=== PATIENT | male | born 1970 | race Caucasian/White ===

== ENCOUNTER 2022-02-23 06:11 | Emergency (ER) | payer BC, SELFPAY ==
--- NOTE | ~2022-02-23 | XR_ITS ---
EXAMINATION: XR chest 2V DATE: 02/23/2022 07:35 INDICATION: Syncope, dizziness, nausea, vomiting and diarrhea. TECHNIQUE: PA and lateral views of the chest were obtained. COMPARISON: Chest radiograph and CT dated 04/28/2015 FINDINGS: Unchanged linear discoid atelectasis/scarring in the anterior left upper lobe on the lateral projecti on. No other airspace opacities, pulmonary edema, pleural effusion or pneumothorax. The cardiomediast inal silhouette is normal. Routine bilateral paired rib-bearing thoracic segments with mild thoracic spondylosis. IMPRESSION: 1. No acute cardiopulmonary disease. Reviewed, dictated and finalized at location A.
[2022-02-23 06:09] VITALS: BP 114/74; PULSE 58; RESP 19; TEMP 36.7; O2SAT 97
--- NOTE | 2022-02-23 06:18 | ECG_ITS ---
Measurements Intervals [place] Rate: 50 P: 29 AR: 206 QRS: -36 QRSD: 113 T: 116 QT: 459 QTc: 422 Interpretive Statements SINUS BRADYCARDIA LEFT ANTERIOR SUPERIOR HEMIBLOCK MODERATE T-WAVE ABNORMALITY, CONSIDER LATERAL ISCHEMIA [-0.1+ mV T WAVE IN I/aVL/V5/V6] NO PREVIOUS ECG AVAILABLE FOR COMPARISON Electronically Signed On 02-23-2022 13:59:02 CDT by Tha Lynne M.D.
--- NOTE | 2022-02-23 06:25 | ED.SYNCOPE ---
HPI - Syncope General Chief Complaint: Dizziness <Scooby Kwon DO - Last Filed: 02/24/22 04:08> Stated Complaint: Dizzy with syncopal <Scooby Kwon DO - Last Filed: 02/24/22 04:08> Time Seen by Provider: 02/23/22 06:18 <Scooby Kwon DO - Last Filed: 02/24/22 04:08> History of Present Illness HPI narrative: 51-year-old male brought in by EMS after syncopal episode. He states he woke up this morning he was having nausea and had some vomiting. He went to the bathroom was having some diarrhea. As he was sitting on the toilet with the diarrhea he was nauseated again and then had a syncopal episode. He states he woke up on the floor. Denies any injuries from falling off the toilet. He states he feels nauseated at this time. Denies any chest pain or shortness of breath. He states he had 1 prior episode which occurred when he cut himself when he saw his blood he passed out. Denies any chronic medical issues other than some elevated blood sugars but he states he is lost weight and seem to have that under control. <Socoby Kwon DO - Last Filed: 02/24/22 04:08> Related Data Home Medications: Home Medications Medication Instructions Recorded Confirmed No Home Medications 02/23/22 02/23/22 <Scooby Kwon DO - Last Filed: 02/24/22 04:08> Allergies/Adverse Reactions: Allergies Allergy/AdvReac Type Severity Reaction Status Date / Time No Known Allergies Allergy Unknown Verified 02/23/22 06:16 <Scooby Kwon DO - Last Filed: 02/24/22 04:08> Review of Systems Review of Systems: CONSTITUTIONAL: Denies fever, chills, or sweats. EYES: Denies visual changes, redness, or discharge. ENT: Denies rhinorrhea, congestion, sore throat, or otalgia. CARDIOVASCULAR: Denies chest pain, palpitations, or edema. RESPIRATORY: Denies cough or dyspnea. GASTROINTESTINAL: Cramping abdominal pain with associated nausea, vomiting, and diarrhea GENITOURINARY: Denies dysuria or hematuria. SKIN: Denies rash or itching. MUSCULOSKELETAL: Denies back pain, joint pain, or myalgia. NEUROLOGIC: Denies headache, numbness, or weakness. PSYCHIATRIC: Denies anxiety or depression. <Scooby Kwon DO - Last Filed: 02/24/22 04:08> PMFSH Past Medical History Medical History: Medical History No pertinent past medical history <Scooby Kwon DO - Last Filed: 02/24/22 04:08> Surgical History Surgical History: Surgical History No pertinent past surgical history <Scooby Kwon DO - Last Filed: 02/24/22 04:08> Family History Family History: Family History Father Family history of diabetes mellitus in first degree relative Family history of type 1 diabetes mellitus Sibling Family history of malignant neoplasm of breast in first degree relative Mother Patient's mother is in good health <Scooby Kwon DO - Last Filed: 02/24/22 04:08> Social History Social History: Social History Smoking status: Heavy tobacco smoker Alcohol intake: current <Scooby Kwon DO - Last Filed: 02/24/22 04:08> Exam Narrative: APPEARANCE: Well appearing, no pain or distress, well-nourished. Head Normocephalic and atraumatic. EYES: PERRLA/EOMI, conjunctivae clear. NOSE: Normal with no drainage EARS:TMS clear with [place], with good light reflex. THROAT: Pharynx clear, no exudate. NECK: Supple. No adenopathy, no masses. RESPIRATORY: Airway patent, respirations nonlabored. Clear to auscultation bilaterally, no rales, rhonchi, wheezing. CARDIOVASCULAR: Regular rate and rhythm without murmurs, rubs, or gallops. Heart rate in the 50s ABDOMINAL: Soft, nontender, nondistended, no hepatosplenomegaly Musculoskeletal: Moves all extremities. Strength/ROM intact, No edema, No
[2022-02-23] MEDS: ONDANSETRON INJ 4 MG/2 ML VIAL IV PUSH (06:41)
[2022-02-23] MEDS: SODIUM CHLORIDE 0.9% IV 1,000 ML 999 ML IV CONT (06:41)
[2022-02-23 06:42] VITALS: BP 97/67; PULSE 59; RESP 15; O2SAT 97
[2022-02-23 06:52] LABS: Basophils Absolute Auto 0.1 K/mm3 (0.0-0.1); Basophils Percent Auto 0.7 % (0.2-1.2); Eosinophils Absolute Auto 0.2 K/mm3 (0-0.3); Eosinophils Percent Auto 1.7 % (0-4.4); Hematocrit 45.8 % (42.0-52.0); Hemoglobin 15.6 g/dL (14.0-18.0); Immature Granulocyte Absolute 0.11 K/mm3 (0.00-0.031); Immature Granulocyte Percent A 0.8 % (0-0.5); Lymphocytes Percent Auto 39.9 % (18.3-44.2); Mean Corpuscular HGB Conc 34.1 g/dl (32-36); Mean Corpuscular Hemoglobin 30.1 pg (26-34); Mean Corpuscular Volume 88.4 fl (80-100); Mean Platelet Volume 10.3 fl (7.4-10.4); Monocytes Absolute Auto 1.1 K/mm3 (0.1-0.6); Monocytes Percent Auto 7.5 % (2.6-8.5); Neutrophils Absolute Auto 6.9 K/mm3 (1.3-6.7); Neutrophils Percent Auto 49.4 % (45.5-73.1); Platelet Count Result 243 k/mm3 (150-375); Red Blood Count 5.18 M/mm3 (4.6-6.20); Red Cell Distribution Width 12.6 % (11.5-14.5)
[2022-02-23 07:04] LABS: Alanine Aminotransferase 27 U/L (6-50); Albumin Level 4.2 g/dL (3.5-5.1); Alkaline Phosphatase 55 U/L (38-126); Anion Gap 11 mmol/L (8-16); Aspartate Amino Transferase 20 U/L (17-59); Bilirubin,Total 0.5 mg/dL (0.2-1.3); Blood Urea Nitrogen 16 mg/dL (9-20); Calcium 9.8 mg/dL (8.4-10.2); Carbon Dioxide 24 mmol/L (22-30); Chloride 102 mmol/L (98-107); Estimated CRCL calculation 77 ml/min; Estimated Glomerular Filt Rate > 60; Glucose 149 mg/dL (65-110); Potassium 3.6 mmol/L (3.4-5.0); Sodium 137 mmol/L (137-145)
[2022-02-23 07:12] VITALS: BP 114/75; PULSE 57; RESP 16; O2SAT 99
[2022-02-23 07:14] LABS: Atypical Lymphocytes Present; Platelet Estimate Adequate (Adequate)
[2022-02-23 07:36] LABS: Troponin I 0.025 ng/mL (0.000-0.034)
[2022-02-23 07:38] LABS: Lipase 125 U/L (23-300)
--- NOTE | 2022-02-23 07:48 | PC.NURSE ---
Pt not able to urinate at this time.
[2022-02-23 08:43] LABS: Appearance Urine Clear (Clear); Bilirubin Urine Negative (Negative); Blood Urine Negative (Negative); Color Urine Yellow (Yellow); Glucose Urine UA Trace mg/dL (Negative); Ketones Urine Negative (Negative); Leukocyte Esterase Ur Negative LEU/UL (Negative); Nitrate Urine Negative (Negative); Protein Urine 1+ mg/dL (Negative); Specific Grav Ur 1.025 (1.001-1.035); Urobilinogen Urine 0.2 mg/dL (<2.0)
[2022-02-23 08:49] LABS: Hyaline Casts Urine 50+ /lpf; Mucus Urine Rare /lpf; RBC Urine 0-2 /hpf (0-2); WBC Urine 0-3 /hpf
[2022-02-23 08:54] LABS: Add Urine Microscopic? YES
[2022-02-23 09:49] LABS: Troponin I 0.027 ng/mL (0.000-0.034)
[2022-02-23 12:02] LABS: Troponin I 0.018 ng/mL (0.000-0.034)
== END 2022-02-23 12:59 | disposition home or self-care (01) ==
PROVIDERS: Emergency Medicine; Emergency Provider Emergency Medicine
DX: R55 Syncope and collapse (principal); R00.1 Bradycardia, unspecified
CPT/HCPCS: 36415; 71046; 80053; 81001; 83690; 84484; 85025; 93005; 96361; 96374; 99284; J2405; J7030

== ENCOUNTER 2023-06-17 13:37 | Outpatient (CLI) | payer BC, SELFPAY ==
[2023-06-17 14:14] LABS: Basophils Percent Auto 0.4 % (0.2-1.2); Eosinophils Absolute Auto 0.1 K/mm3 (0-0.3); Eosinophils Percent Auto 0.6 % (0-4.4); Hemoglobin 16.5 g/dL (14.0-18.0); Immature Granulocyte Absolute 0.06 K/mm3 (0.00-0.031); Immature Granulocyte Percent A 0.6 % (0-0.5); Lymphocytes Absolute Auto 2.34 K/mm3 (0.9-3.2); Lymphocytes Percent Auto 23.6 % (18.3-44.2); Mean Corpuscular HGB Conc 34.4 g/dl (32-36); Mean Corpuscular Hemoglobin 30.3 pg (26-34); Mean Corpuscular Volume 88.1 fl (80-100); Mean Platelet Volume 10.7 fl (7.4-10.4); Monocytes Absolute Auto 0.6 K/mm3 (0.1-0.6); Monocytes Percent Auto 6.4 % (2.6-8.5); Neutrophils Absolute Auto 6.8 K/mm3 (1.3-6.7); Neutrophils Percent Auto 68.4 % (45.5-73.1); Platelet Count Result 229 k/mm3 (150-375); Red Blood Count 5.45 M/mm3 (4.6-6.20); Red Cell Distribution Width 12.3 % (11.5-14.5); White Blood Count 9.9 K/mm3 (4.5-10.0)
[2023-06-17 15:06] LABS: Alanine Aminotransferase 37 U/L (6-50); Albumin Level 4.6 g/dL (3.5-5.1); Alkaline Phosphatase 65 U/L (38-126); Anion Gap 8 mmol/L (8-16); Aspartate Amino Transferase 22 U/L (17-59); Bilirubin,Total 0.6 mg/dL (0.2-1.3); Blood Urea Nitrogen 14 mg/dL (9-20); Calcium 9.6 mg/dL (8.4-10.2); Carbon Dioxide 27 mmol/L (22-30); Chloride 102 mmol/L (98-107); Cholesterol 265 mg/dL (0-200); Estimated Glomerular Filt Rate > 60; Glucose 225 mg/dL (65-110); HDL Direct 32 mg/dL; Sodium 137 mmol/L (137-145); Triglycerides 287 mg/dL (<150)
[2023-06-17 15:17] LABS: LDL Cholesterol Direct 163 mg/dL
== END 2023-06-17 13:38 | disposition home or self-care (01) ==
PROVIDERS: PCP Family Medicine; Visit Provider Family Medicine
DX: I10 Essential (primary) hypertension (principal); E78.2 Mixed hyperlipidemia; E03.9 Hypothyroidism, unspecified
CPT/HCPCS: 36415; 80053; 80061; 84443; 85025

== ENCOUNTER 2023-10-26 11:17 | Outpatient (CLI) | payer BC, SELFPAY ==
[2023-10-26 12:19] LABS: Hemoglobin A1C 7.6 % (<5.7)
== END 2023-10-26 11:18 | disposition home or self-care (01) ==
LOC: ANHLAB 11:18
PROVIDERS: PCP Family Medicine; Referring Provider Physician Assistant; Visit Provider Family Medicine
DX: M25.561 Pain in right knee (principal); E11.9 Type 2 diabetes mellitus without complications
CPT/HCPCS: 36415; 73564; 83036

== ENCOUNTER 2024-02-05 11:33 | Outpatient (CLI) | payer BC, SELFPAY ==
--- NOTE | ~2024-02-05 | MR_ITS ---
MRI of the right knee Clinical history: Medial pain Technique: Coronal proton density and proton density-weighted images, sagittal proton-density and T2 fat-sat images, and axial proton-density fat-saturated images were acquired. Findings: Anterior and posterior cruciate ligaments are intact. Medial collateral ligament and the la teral collateral ligament complex are intact. Popliteus tendon is intact. Medial and lateral menisci are intact, without evidence of tear. Articular cartilage is well preserved throughout the knee. Bone marrow signals are unremarkable. Extensor mechanism is intact. No significant joint effusion. Tiny Jackson's cyst. Impression: Tiny Jackson's cyst, otherwise essentially unremarkable exam. Reviewed, dictated and finalized at location M. Impression: Tiny Jackson's cyst, otherwise essentially unremarkable exam.
== END 2024-02-05 11:34 ==
PROVIDERS: PCP Nurse Practitioner Family; Visit Provider Nurse Practitioner Family
DX: M25.561 Pain in right knee (principal)
CPT/HCPCS: 73721

== ENCOUNTER 2024-02-11 10:01 | Outpatient (CLI) | payer BC, SELFPAY ==
[2024-02-11 11:07] LABS: Alanine Aminotransferase 64 U/L (6-50); Albumin Level 4.8 g/dL (3.5-5.1); Alkaline Phosphatase 62 U/L (38-126); Anion Gap 9 mmol/L (4-12); Aspartate Amino Transferase 32 U/L (17-59); Blood Urea Nitrogen 15 mg/dL (9-20); Calcium 9.2 mg/dL (8.4-10.2); Carbon Dioxide 25 mmol/L (22-30); Chloride 102 mmol/L (98-107); Cholesterol 320 mg/dL (0-200); Estimated Glomerular Filt Rate > 60; Glucose 261 mg/dL (65-110); HDL Direct 37 mg/dL; Potassium 4.1 mmol/L (3.4-5.0); Sodium 136 mmol/L (137-145)
[2024-02-11 11:08] LABS: LDL Cholesterol Direct 147 mg/dL
[2024-02-11 11:11] LABS: Hemoglobin A1C 8.7 % (<5.7); Triglycerides 587 mg/dL (<150)
== END 2024-02-11 10:02 | disposition home or self-care (01) ==
PROVIDERS: PCP Nurse Practitioner Family; Visit Provider Physician Assistant
DX: E78.5 Hyperlipidemia, unspecified (principal); E11.9 Type 2 diabetes mellitus without complications
CPT/HCPCS: 36415; 80053; 80061; 83036

== ENCOUNTER 2024-02-14 12:48 | Outpatient (CLI) | payer BC, SELFPAY ==
--- NOTE | ~2024-02-14 | US_ITS ---
BILATERAL LOWER EXTREMITY VENOUS ULTRASOUND Ordering provider: ALEX Sanchez History: . Z86.718 - Personal history of other venous thrombosis and... . Comparison: None. FINDINGS: RIGHT LOWER EXTREMITY VEINS: --COMMON FEMORAL: Patent and free of thrombus. Normal compressibility, phasic flow and augmentation. --PROXIMAL SUPERFICIAL FEMORAL: Patent and free of thrombus. Normal compressibility, phasic flow and augmentation. --DISTAL SUPERFICIAL FEMORAL: Patent and free of thrombus. Normal compressibility, phasic flow and au gmentation. --POPLITEAL: Patent and free of thrombus. Normal compressibility, phasic flow and augmentation. --POSTERIOR TIBIAL: Patent and free of thrombus. Normal compressibility, phasic flow and augmentation . LEFT LOWER EXTREMITY VEINS: --COMMON FEMORAL: Patent and free of thrombus. Normal compressibility, phasic flow and augmentation. --PROXIMAL SUPERFICIAL FEMORAL: Patent and free of thrombus. Normal compressibility, phasic flow and augmentation. --DISTAL SUPERFICIAL FEMORAL: Patent and free of thrombus. Normal compressibility, phasic flow and au gmentation. --POPLITEAL: Patent and free of thrombus. Normal compressibility, phasic flow and augmentation. --POSTERIOR TIBIAL: Patent and free of thrombus. Normal compressibility, phasic flow and augmentation . IMPRESSION: Negative bilateral lower extremity venous US. No deep vein thrombosis. Reviewed, dictated and finalized at location A.
== END 2024-02-14 12:49 ==
LOC: GOSHIMG 12:49
PROVIDERS: PCP Nurse Practitioner Family; Visit Provider Nurse Practitioner Family
DX: Z86.718 Personal history of other venous thrombosis and embolism (principal)
CPT/HCPCS: 93970

== ENCOUNTER 2024-05-02 13:55 | Outpatient (CLI) | payer BC, SELFPAY ==
[2024-05-03 13:32] LABS: Homocysteine 11.5 umol/L (<11.4)
[2024-05-03 20:29] LABS: Lupus dRVVT Screen 41 sec (< OR = 45); PTT-LA Screen 31 sec (< OR = 40)
== END 2024-05-02 13:56 | disposition home or self-care (01) ==
LOC: ANHLAB 13:58
PROVIDERS: PCP Family Medicine; Visit Provider Internal Medicine Hematology & Oncology
DX: D68.69 Other thrombophilia (principal)
CPT/HCPCS: 36415; 83090; 85303; 85306; 85613; 85730; 86146

== ENCOUNTER 2024-06-13 11:30 | Outpatient (CLI) | payer BC, SELFPAY ==
--- NOTE | 2024-06-13 11:30 | ECG_ITS ---
Test Date: 2024-06-13 11:57:34 Measurements Intervals [facility] Rate: 75 P: 30 RI: 184 QRS: -44 QRSD: 106 T: 49 QT: 382 QTc: 427 Interpretive Statements SINUS RHYTHM MARKED LEFT AXIS DEVIATION [QRS AXIS < -30] WARNING: DATA QUALITY MAY AFFECT INTERPRETATION No previous ECG available for comparison Electronically Signed On 06-13-2024 15:29:58 [employer]PERATOR by Julisa Stephen M.D.
== END 2024-06-13 11:31 | disposition home or self-care (01) ==
LOC: ANHSURGERY 11:38
PROVIDERS: PCP Student in an Organized Health Care Education/Training Program; Visit Provider Orthopaedic Surgery
DX: Z01.810 Encounter for preprocedural cardiovascular examination (principal); I44.4 Left anterior fascicular block; E11.9 Type 2 diabetes mellitus without complications
CPT/HCPCS: 36415; 80053; 83036; 93005

== ENCOUNTER 2024-06-13 11:40 | Outpatient (CLI) | payer BC, SELFPAY ==
[2024-06-13 12:22] LABS: Hemoglobin A1C 7.1 % (<5.7)
[2024-06-13 12:25] LABS: Alanine Aminotransferase 39 U/L (6-50); Albumin Level 4.5 g/dL (3.5-5.1); Alkaline Phosphatase 65 U/L (38-126); Anion Gap 6 mmol/L (4-12); Aspartate Amino Transferase 25 U/L (17-59); Bilirubin,Total 0.5 mg/dL (0.2-1.3); Blood Urea Nitrogen 17 mg/dL (9-20); Calcium 9.6 mg/dL (8.4-10.2); Carbon Dioxide 29 mmol/L (22-30); Chloride 102 mmol/L (98-107); Estimated Glomerular Filt Rate > 60; Glucose 202 mg/dL (65-110); Potassium 4.6 mmol/L (3.4-5.0); Sodium 137 mmol/L (137-145)
== END 2024-06-13 11:41 | disposition home or self-care (01) ==
LOC: ANHLAB 11:41
PROVIDERS: PCP Student in an Organized Health Care Education/Training Program; Visit Provider Student in an Organized Health Care Education/Training Program
DX: E11.9 Type 2 diabetes mellitus without complications (principal)
CPT/HCPCS: 36415; 80053; 83036

== ENCOUNTER 2024-06-15 00:12 | Day surgery (SDC) | payer BC, SELFPAY ==
[2024-06-07 11:17] VITALS: BMI 34.0
--- NOTE | 2024-06-07 11:24 | PC.NURSE ---
Report to the Outpatient Waiting Room, entrance under the green pavilion located off [facility], at time _1100_ on date _[phone]_. Planned Procedure Time: _1pm_.? Time changes happen often and if your time is changed the preop area will call you the afternoon before. - You and your visitor will be asked to self-screen and do not enter if you have any COVID symptoms. Please call surgeon if you need to reschedule. - A mask is optional within the hospital at this time. Patients may have clear liquids (water, carbonated beverages, clear teas, apple juice) until 3 hours prior to surgery with a maximum of 20 ounces. - No food from midnight until time of surgery and no smoking. This includes no chewing gum, candy or mints. Take only the following medications with a SIP of water on the morning of surgery: ____None____ DO NOT STOP ANY OF YOUR OTHER PRESCRIPTION MEDICATIONS PRIOR TO SURGERY EXCEPT THE FOLLOWING Medications to discontinue per physician ___Patient is not starting Celebrex until after surgery. Patient is stopping Aspirin today per MD instructions. Take no more Naproxen until after surgery. Tylenol OK. Date to take last dose Please no make-up, nail kinyarwanda, hairspray, perfume, deodorant, or body powder the day of surgery.? No jewelry (including any body piercings) or valuables the day of surgery, leave them at home.? Please take a shower or bath the night before, or the morning of, surgery with an antibacterial soap.? Wear comfortable, loose fitting clothing.? - Jewelry must be removed prior to entering the operating room.? Rings and piercings that are not removed may be cut off. - The hospital will not accept responsibility for valuables.? - Please leave all valuables, including medications, at home the day of surgery. If you are going home after surgery, a licensed commercial driver's license driver must drive you home.? - NO public transportation without another adult if you receive anesthesia. - We recommend that an adult stay with you for 24 hours following discharge. - We also recommend that you do not drive, make important decision, drink alcoholic beverages, or take any drugs that were not prescribed by your health care provider for at least 24 hours after your discharge time. Follow any additional instructions given to you from your surgeon. Telephone instructions given to _Tim_and asked if any additional questions and then verbalized understanding. Patient advised to call surgeon office or pre surgery nurse liaison [phone] if any additional questions.
--- NOTE | 2024-06-13 15:09 | P.HP_ITS ---
H&P: HPI History of Present Illness Date/Time: 06/13/24 15:09 Chief Complaint: right knee mass Narrative: 53-year-old man with visible and palpable mass of the right knee. Exquisitely tender to palpation. Problems with motion and activity. Presents for operative removal. Review of Systems Constitutional: Constitutional: Denies fever(s) Eyes: Eyes: Denies blurry vision ENT: Reports Normal hearing present Cardiovascular: Cardiovascular: Denies chest pain and Denies dyspnea Respiratory: Respiratory: Denies dyspnea and Denies wheezing Gastrointestinal: Gastrointestinal: Denies abdominal pain Genitourinary: Genitourinary: Denies urinary urgency Musculoskeletal: Musculoskeletal: Reports as per HPI and Denies numbness Integumentary/Breasts: Skin/Breast: Denies changing lesions and Denies sores Neurologic: Reports Normal hearing present, Denies behavioral changes, Denies confusion, Denies numbness and Denies convulsions Psychiatric: Psychiatric: Denies behavioral changes, Denies confusion and Denies hallucinations Endocrine: Endocrine: Denies heat intolerance Hematologic/Lymphatic: Hematologic/Lymphatic: Denies easy bleeding Allergic/Immunologic: Allergic/Immunologic: Denies wheezing PMFSH Past Medical History Medical History Chronic insomnia Colon cancer screening Dizziness Elevated fasting glucose Elevated liver enzymes 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 Erectile dysfunction Essential hypertension Generalized anxiety disorder GERD (gastroesophageal reflux disease) Heart palpitations History of blood clots Impaired glucose tolerance Mass of knee Mass of right knee MTHFR mutation Pulmonary emboli Right knee pain Sleep apnea in adult Tobacco use Family History Family History Father Family history of diabetes mellitus in first degree relative Family history of type 1 diabetes mellitus Sibling Family history of malignant neoplasm of breast in first degree relative Mother Patient's mother is in good health Social History Social History Social History: Smoking packs per day: 1 Smoking cigarettes per day: 20.0 Years smoked: 30 Smoking pack-years: 30.00 Smoking status: Former smoker Tobacco type: cigarettes Smoking end date: 12/06/23 Alcohol intake: current Alcohol use details: Rarely Substance use: never Substance use type: does not use Lack of Transportation: No Lack of Food: Never True Current Housing: I Have Housing Concerned About Future Housing: No Difficulty Paying Gas/Electric Bills: No Difficulty Paying for Meds: No Currently Unemployed: No Education: Associate Degree Difficulty w/ Childcare or Family Care: No Living arrangements: with family Occupation/Education: occupation 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/education 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 Gender identity (if verbalized by the patient): Male Sexual Orientation (if Verbalized by the Patient): Straight or Heterosexual Spiritual care concerns: No Meds Home Medications and Allergies Home Medications Medication Instructions Recorded Confirmed Type acetaminophen 325 mg capsule 325 mg PO Q6H PRN Pain 05/04/23 06/07/24 History (Tylenol) aspirin 81 mg tablet,delayed 81 mg PO DAILY 05/04/23 06/07/24 History release (Adult Aspirin Regimen) famotidine 10 mg tablet 10 mg PO DAILY PRN reflux 05/04/23 06/07/24 History buspirone 5 mg tablet 5 mg PO TID PRN anxiety' 06/25/23 06/07/24 History blood sugar diagnostic (Contour #100 ea 10/29/23 06/07/24 Rx Next Test Strips) blood-glucose meter (Contour Next #1 ea 10/29/23 06/07/24 Rx Gen Meter kit) lancets 28 gauge (Comfort EZ #100 ea 10/29/23 06/07/24 Rx Lancets) metformin 500 mg tablet See Rx Instructions .Route 03/03/24 06/07/24 Rx .COMPLEX #60 tabs celecoxib 100 mg capsule (Celebrex) 100 mg PO BID #60 caps 03/31/24 06/07/24 Rx rosuvastatin 5 mg tablet 5 mg PO DAILY #30 tabs 03/31/24 06/07/24 Rx semaglutide 0.25 mg or 0.5 mg (2 See Rx Instructions .Route 06/01/24 06/07/24 Rx mg/3 mL) subcutaneous pen injector .COMPLEX #3 mL (Ozempic) loratadine 10 mg tablet (Claritin) 10 mg PO DAILY 06/07/24 06/07/24 History naproxen sodium 220 mg tablet 220 mg PO BID PRN Pain 06/07/24 06/07/24 History Allergies Allergy/AdvReac Type Severity Reaction Status Date / Time rivaroxaban [From Xarelto] Allergy Severe Swelling Verified 06/07/24 11:14 of Lip/Tongue/Throat Exam Const: General: No confusion Orientation/consciousness: patient oriented x3 and No confusion HENMT: Head: normal to inspection, normocephalic and atraumatic Eyes: Conjunctivae: conjunctivae normal Sclera: sclerae normal Neck: Neck: supple and nontender Chest: Chest palpation & inspection: normal inspection of the chest Resp: Effort & Inspection: normal respiratory effort and no audible wheezes Cardio: Rate: regular rate Rhythm: regular rhythm GI: GI Palp: No abdominal tenderness and Yes Soft to palpation : General: Yes deferred Skin: General skin exam: no rashes or lesions noted Neuro: General: patient oriented x3 and No confusion Extrem: General: capillary refill normal Right upper extremity: normal to inspection Left upper extremity: normal to inspection Right lower extremity: hip/thigh Details: normal to inspection and normal ROM; no tenderness, knee Details: normal to inspection, abnormal to inspection ( Visible mass medial knee. 2 cm, nonmobile and nonpulsatile. Tender to palpation.), tenderness Location: of the medial joint line, swelling Location: of the pre-patellar area, abnormal ROM Details: pain with active ROM during Details: in extension and in flexion and with range as follows ( -5 degrees - flexion 120?) and Migel's Test Details: positive medially, ankle ( able to actively flex and extend ankle) Details: no tenderness and foot Details: normal capillary refill, toes with normal ROM, vascular exam Details: dorsalis pedis pulse present and normal capillary refill and motor-sensory exam Details: light- touch normal Location: in all toes; no tenderness Left lower extremity: normal to inspection, hip/thigh Details: no tenderness and no swelling, lower leg, ankle (no calf tenderness) Details: normal ROM; no tenderness and foot Details: normal capillary refill, vascular exam Details: dorsalis pedis pulse present and normal capillary refill and motor-sensory exam light-touch normal in all toes Psych: Affect: normal affect Assessment and Plan Assessment and plan (1) Mass of right knee: Code(s): R22.41 - Localized swelling, mass and lump, right lower limb Status: Acute Assessment and Plan: 53 year old male presents for right knee mass. MRI reveals an 8 x 6 mm subcutaneous mass superficial to the medial retinaculum. Condition, nature, etiology and course of natural history discussed. Conservative and operative treatment options reviewed as well as the risks and benefits of both. Patient desires surgical excision. Previously requested bilateral lower extremity Dopplers as patient does have a history of a pulmonary embolism with a clotting disorder at baseline. Bilateral lower extremity Dopplers reveal no evidence of deep vein thrombosis. Patient would like to proceed with surgical intervention for excision of mass. Discussed possible risks of postoperative poor healing with current elevation in blood glucose levels. Patient verbalized understanding. Risks of surgery including but not limited to neurovascular damage, wound complications, blood clot, pulmonary embolus, stroke, myocardial infarction, anesthetic risks up to and including were reviewed. Continued pain and possible dysfunction were explained. No guarantees were offered. The patient understands and wishes to proceed. Plan: Excision of Mass RIGHT Knee
--- NOTE | 2024-06-14 16:11 | P.PNAN_ITS ---
Anes - Eval Pre Procedure Procedure: Operation Date: 06/15/24 13:00 Proposed Procedures p Right Knee Medial Mass Excision - Gino Neff MD Date/Time: 06/14/24 16:11 Pre Op Diagnosis: Rt Knee Mass Patient Data Age: 53 Gender: M Height: 1.83 m Weight: 113.6 kg Allergies Allergy/AdvReac Type Severity Reaction Status Date / Time rivaroxaban [From Xarelto] Allergy Severe Swelling Verified 06/07/24 11:14 of Lip/Tongue/Throat Home Medications Medication Instructions Recorded Confirmed Type acetaminophen 325 mg capsule 325 mg PO Q6H PRN Pain 05/04/23 06/07/24 History (Tylenol) aspirin 81 mg tablet,delayed 81 mg PO DAILY 05/04/23 06/07/24 History release (Adult Aspirin Regimen) famotidine 10 mg tablet 10 mg PO DAILY PRN reflux 05/04/23 06/07/24 History buspirone 5 mg tablet 5 mg PO TID PRN anxiety' 06/25/23 06/07/24 History blood sugar diagnostic (Contour #100 ea 10/29/23 06/07/24 Rx Next Test Strips) blood-glucose meter (Contour Next #1 ea 10/29/23 06/07/24 Rx Gen Meter kit) lancets 28 gauge (Comfort EZ #100 ea 10/29/23 06/07/24 Rx Lancets) metformin 500 mg tablet See Rx Instructions .Route 03/03/24 06/07/24 Rx .COMPLEX #60 tabs celecoxib 100 mg capsule (Celebrex) 100 mg PO BID #60 caps 03/31/24 06/07/24 Rx rosuvastatin 5 mg tablet 5 mg PO DAILY #30 tabs 03/31/24 06/07/24 Rx semaglutide 0.25 mg or 0.5 mg (2 See Rx Instructions .Route 06/01/24 06/07/24 Rx mg/3 mL) subcutaneous pen injector .COMPLEX #3 mL (Ozempic) loratadine 10 mg tablet (Claritin) 10 mg PO DAILY 06/07/24 06/07/24 History naproxen sodium 220 mg tablet 220 mg PO BID PRN Pain 06/07/24 06/07/24 History Patient hx anesthesia problems: none Family hx anesthesia problems: none Results Review: All pre-operative results and documents have been reviewed as part of the pre- operative evaluation. 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 Erectile dysfunction Essential hypertension Generalized anxiety disorder GERD (gastroesophageal reflux disease) Heart palpitations History of blood clots Impaired glucose tolerance Mass of knee Mass of right knee MTHFR mutation Pulmonary emboli Right knee pain Sleep apnea in adult Tobacco use Family History Family History Father Family history of diabetes mellitus in first degree relative Family history of type 1 diabetes mellitus Sibling Family history of malignant neoplasm of breast in first degree relative Mother Patient's mother is in good health Social History Social History Social History: Smoking packs per day: 1 Smoking cigarettes per day: 20.0 Years smoked: 30 Smoking pack-years: 30.00 Smoking status: Former smoker Tobacco type: cigarettes Smoking end date: 12/06/23 Alcohol intake: current Alcohol use details: Rarely Substance use: never Substance use type: does not use Lack of Transportation: No Lack of Food: Never True Current Housing: I Have Housing Concerned About Future Housing: No Difficulty Paying Gas/Electric Bills: No Difficulty Paying for Meds: No Currently Unemployed: No Education: Associate Degree Difficulty w/ Childcare or Family Care: No Living arrangements: with family Occupation/Education: occupation 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
[2024-06-15] VITALS (7 sets, daily range): BP systolic 125–148; BP diastolic 82–93; PULSE 71–88; RESP 12–16; TEMP 35.9–36.3; O2SAT 98–100
[2024-06-15] MEDS: ACETAMINOPHEN 500 MG TABLET 1000 MG PO (11:15)
[2024-06-15] MEDS: LACTATED RINGERS 1,000 ML 30 ML IV CONT (11:15)
[2024-06-15] MEDS: KETOROLAC 15 MG/ML VIAL (*BKC) IV PUSH (11:15)
[2024-06-15 11:48] LABS: Glucose Point of Care 174 mg/dl (65-105)
--- NOTE | 2024-06-15 11:58 | WPDHPUPDATE1 ---
History and Physical Update Update Date/Time: 06/15/24 11:58 History and Physical has been reviewed, including an updated exam of the patient. There are NO changes in the patient's condition. Risks, benefits, and alternatives have been discussed and questions answered. Patient agrees to proceed with procedure.
--- NOTE | 2024-06-15 12:59 | WPDANESEPPF ---
Anes - Initial Pre Proc Eval Procedure: Operation Date: 06/15/24 13:00 Proposed Procedures p Right Knee Medial Mass Excision - Gino Neff MD Date/Time: 06/15/24 12:59 Surgeon: Gino Neff MD Pre Op Diagnosis: Rt Knee Mass Patient Data Age: 53 Gender: M Height: 1.83 m Weight: 110.8 kg Last Vital Signs Temp 36.3 C L 06/15/24 11:15 Pulse 88 06/15/24 11:15 Resp 14 06/15/24 11:15 BP 148/89 H 06/15/24 11:15 Pulse Ox 98 06/15/24 11:15 O2 Del Method Room Air 06/15/24 11:15 Allergies Allergy/AdvReac Type Severity Reaction Status Date / Time rivaroxaban [From Xarelto] Allergy Severe Swelling Verified 06/15/24 12:40 of Lip/Tongue/Throat Home Medications Medication Instructions Recorded Confirmed Type acetaminophen 325 mg capsule 325 mg PO Q6H PRN Pain 05/04/23 06/07/24 History (Tylenol) aspirin 81 mg tablet,delayed 81 mg PO DAILY 05/04/23 06/15/24 History release (Adult Aspirin Regimen) famotidine 10 mg tablet 10 mg PO DAILY PRN reflux 05/04/23 06/07/24 History buspirone 5 mg tablet 5 mg PO TID PRN anxiety' 06/25/23 06/07/24 History blood sugar diagnostic (Contour #100 ea 10/29/23 06/07/24 Rx Next Test Strips) blood-glucose meter (Contour Next #1 ea 10/29/23 06/07/24 Rx Gen Meter kit) lancets 28 gauge (Comfort EZ #100 ea 10/29/23 06/07/24 Rx Lancets) metformin 500 mg tablet See Rx Instructions .Route 03/03/24 06/07/24 Rx .COMPLEX #60 tabs celecoxib 100 mg capsule (Celebrex) 100 mg PO BID #60 caps 03/31/24 06/15/24 Rx rosuvastatin 5 mg tablet 5 mg PO DAILY #30 tabs 03/31/24 06/07/24 Rx semaglutide 0.25 mg or 0.5 mg (2 See Rx Instructions .Route 06/01/24 06/07/24 Rx mg/3 mL) subcutaneous pen injector .COMPLEX #3 mL (Ozempic) loratadine 10 mg tablet (Claritin) 10 mg PO DAILY 06/07/24 06/07/24 History naproxen sodium 220 mg tablet 220 mg PO BID PRN Pain 06/07/24 06/15/24 History apixaban 5 mg tablet (Eliquis) 5 mg PO BID dvt prophylaxis #42 06/15/24 Rx tabs hydrocodone 5 mg-acetaminophen 325 1 tablet PO Q6H PRN pain #20 tabs 06/15/24 Rx mg tablet Laboratory Tests 06/15/24 11:45 POC Capillary Glucose 174 H mg/dl (65-105) Patient hx anesthesia problems: none Family hx anesthesia problems: none Results Review: All pre-operative results and documents have been reviewed as part of the pre-operative evaluation. 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 Erectile dysfunction Essential hypertension Generalized anxiety disorder GERD (gastroesophageal reflux disease) Heart palpitations History of blood clots Impaired glucose tolerance Mass of knee Mass of right knee MTHFR mutation Pulmonary emboli Right knee pain Sleep apnea in adult Tobacco use Family History Family History Father Family history of diabetes mellitus in first degree relative Family history of type 1 diabetes mellitus Sibling Family history of malignant neoplasm of breast in first degree relative Mother Patient's mother is in good health Social History Social History Social History: Smoking packs per day: 1 Smoking cigarettes per day: 20.0 Years smoked: 30 Smoking pack-years: 30.00 Smoking status: Former smoker Tobacco type: cigarettes Smoking end date: 12/06/23 Alcohol intake: current Alcohol use details: Rarely Substance use: never Substance use type: does not use Lack of Transportation: No Lack of Food: Never True Current Housing: I Have Housing Concerned About Future Housing: No Difficulty Paying Gas/Electric Bills: No Difficulty Paying for Meds: No Currently Unemployed: No Education: Associate Degree Difficulty w/ Childcare or Family Care: No Living arrangements: with family Occupation/Education: occupation 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[employer] Gender identity (if verbalized by the patient): Male Sexual Orientation (if Verbalized by the Patient): Straight or Heterosexual Spiritual care concerns: No Anes - Eval Final PreProcedure Day of Procedure 06/15/24 12:59 Patient weight: obese Heart: regular rate and rhythm Lungs: clear to auscultation Airway: Mallampati scale class III Neurological: alert and oriented Last oral intake: >/= 8 hours ASA classification: III Emergent: no Anesthetic plan: proceed Anesthesia type and monitoring: general ETT and standard monitoring Results Review: All pre-operative results and documents have been reviewed as part of the pre-operative evaluation. Informed Consent: The patient's anesthetic plan and its attendant risks and benefits were discussed with the patient/family/POA. Questions were solicited and answers provided to the satisfaction of the patient/family/POA.
[2024-06-15] MEDS: ceFAZolin 2 GM/D5W 50 ML 2 GM/50 ML BAG IVPB (13:13)
[2024-06-15] MEDS: BUPivacaine HCL 0.5% PF 30 ML VIAL 10 ML INFILTRATE (13:31)
--- NOTE | 2024-06-15 14:17 | P.OP_ITS ---
Procedure Note - Detailed Date of Procedure 06/15/24 Pre-op Diagnosis Rt Knee Mass Post-op Diagnosis Same Procedure Performed Excision of right knee mass, subcutaneous, less than 2 cm Surgeon Gino Neff MD Pipefitter Welder 1st dyer assistant Anesthesia General Indications 53-year-old gentleman with a mass on the medial aspect of the right knee which is tender to palpation. Pain with motion of the joint. MRI shows subcutaneous mass. Patient presents for operative removal and biopsy. Findings 10 x 8 mm subcutaneous mass medial right knee above the retinacular level. Description of Procedure Patient identified in the preoperative holding. Informed consent given. Operative extremity marked. Patient received intravenous antibiotics. Patient brought to the operating room where underwent general anesthetic by anesthesia team. Positioned supine on operating room table. Time-out performed confirming the patient, site of the surgery and the plan. right knee prepped and draped in usual sterile surgical fashion using ChloraPrep skin solution. Local anesthetic with 0.5% Marcaine plain used proximal to the mass. 15 blade knife used to ellipse the skin overlying the mass. Sharp dissection then carried down through the fascia. The mass was visible under the fascia. This was dissected free of the surrounding soft tissue in a circumferential manner. Mass appeared round and smooth with a greatest hand color 1 cm x 0.8 cm size. Mass was removed from the deep tissue. A suture was placed at the base of the mass which was then passed off. Wound irrigated. No other abnormal tissue identified. Subcutaneous tissue closed with 3 Monocryl interrupted suture. Skin repaired with 3 Monocryl running subcuticular stitch and Steri-Strips. Sterile dressing applied. The patient was then woken from anesthesia, extubated and taken to the recovery room in stable condition. All sponge, needle, instrument counts were correct at the end of the case. Estimated Blood Loss 2 Tourniquet Time Total Tourniquet Time: 0 Drains No Packing No Pathology Yes ( Mass sent for permanent specimen to pathology) Complications None Condition Stable Disposition PACU [facility] Billing Surgery - Charge Forward: Surgery Billing ([id number])
== END 2024-06-15 15:46 | disposition home or self-care (01) ==
PROVIDERS: PCP Student in an Organized Health Care Education/Training Program; Visit Provider Orthopaedic Surgery
PROC: (CPT 27327; principal; 2024-06-15 13:00)
DX: D18.01 Hemangioma of skin and subcutaneous tissue (principal); E11.9 Type 2 diabetes mellitus without complications; I10 Essential (primary) hypertension; K21.9 Gastro-esophageal reflux disease without esophagitis; F41.1 Generalized anxiety disorder; G47.30 Sleep apnea, unspecified; Z79.84 Long term (current) use of oral hypoglycemic drugs; Z79.85 Long-term (current) use of injectable non-insulin antidiabetic drugs; Z79.01 Long term (current) use of anticoagulants; Z87.891 Personal history of nicotine dependence; E66.9 Obesity, unspecified; Z68.33 Body mass index [BMI] 33.0-33.9, adult
CPT/HCPCS: 27327; 36415; 80053; 82948; 83036; 88304; 88342; 93005; A9270; J0330; J0690; J1100; J1885; J2003; J2250; J2405; J2704; J3010; J7120

== ENCOUNTER 2024-12-25 13:33 | Outpatient (CLI) | payer BC, SELFPAY ==
[2024-12-25 14:03] LABS: Basophils Percent Auto 0.4 % (0.2-1.2); Eosinophils Absolute Auto 0.1 K/mm3 (0-0.3); Eosinophils Percent Auto 0.8 % (0-4.4); Hematocrit 43.9 % (42.0-52.0); Immature Granulocyte Absolute 0.04 K/mm3 (0.00-0.031); Immature Granulocyte Percent A 0.4 % (0-0.5); Lymphocytes Absolute Auto 2.78 K/mm3 (0.9-3.2); Lymphocytes Percent Auto 29.9 % (18.3-44.2); Mean Corpuscular HGB Conc 34.2 g/dl (32-36); Mean Corpuscular Hemoglobin 29.1 pg (26-34); Mean Corpuscular Volume 85.2 fl (80-100); Mean Platelet Volume 10.3 fl (7.4-10.4); Monocytes Absolute Auto 0.6 K/mm3 (0.1-0.6); Monocytes Percent Auto 6.1 % (2.6-8.5); Neutrophils Absolute Auto 5.8 K/mm3 (1.3-6.7); Neutrophils Percent Auto 62.4 % (45.5-73.1); Platelet Count Result 211 k/mm3 (150-375); Red Blood Count 5.15 M/mm3 (4.6-6.20); Red Cell Distribution Width 12.1 % (11.5-14.5); White Blood Count 9.3 K/mm3 (4.5-10.0)
[2024-12-25 14:10] LABS: Hemoglobin A1C 7.1 % (<5.7)
[2024-12-25 14:12] LABS: Alanine Aminotransferase 47 U/L (6-50); Albumin Level 4.6 g/dL (3.5-5.1); Alkaline Phosphatase 60 U/L (38-126); Anion Gap 8 mmol/L (4-12); Aspartate Amino Transferase 31 U/L (17-59); Bilirubin,Total 0.7 mg/dL (0.2-1.3); Blood Urea Nitrogen 15 mg/dL (9-20); Calcium 9.3 mg/dL (8.4-10.2); Carbon Dioxide 25 mmol/L (22-30); Chloride 103 mmol/L (98-107); Cholesterol 205 mg/dL (0-200); Estimated Glomerular Filt Rate > 60; Glucose 162 mg/dL (65-110); HDL Direct 41 mg/dL; Potassium 4.2 mmol/L (3.4-5.0); Sodium 136 mmol/L (137-145); Total Protein 7.4 g/dL (6.3-8.2); Triglycerides 271 mg/dL (<150)
[2024-12-25 14:23] LABS: LDL Cholesterol Direct 102 mg/dL
--- OUTSIDE RECORDS SUMMARY | 2024-12-25 14:36 | XMS_ITS | Clinical Summary ---
Author Organization [facility] Yen Address [address] [place] [address] Care Team Providers Care Sales Service Executive Name Role Phone Unavailable Primary Care Provider Unavailabl e Allergies No known active allergies Medications metFORMIN (GLUCOPHAGE XR) 500 mg Extended Release 24 hour tablet Take 500 mg by mouth daily. Active busPIRone (BUSPAR) 5 mg tablet Take 5 mg by mouth 3 times daily. Active aspirin (ECOTRIN EC) 81 mg Tablet, Delayed Release (E.C.) Take 81 mg by mouth daily. Active FAMOTIDINE ORAL Take by mouth. Active loratadine (CLARITIN) 5 mg/5 mL solution Take 10 mg by mouth daily. Active apixaban (ELIQUIS) 5 mg tablet Take 1 Tablet (5 mg) by mouth 2 times daily. 42 Tablet 06/02/2024 Active Active Problems No known active problems Family History Medical History Relation Name Comments No Known Problems Child 1 No Known Problems Child 2 No Known Problems Child 3 Diabetes Father Breast Cancer Mother Breast Cancer Sister Relation Name Status Comments Child 1 Alive Child 2 Alive Child 3 Alive Father Alive Mother Alive Sister Alive Social History Tobacco Use Types Packs/Day Years Used Date Smoking Tobacco: Former Cigarettes Q uit: 11/10/2023 Tobacco Cessation:Counseling Given: Not Answered Alcohol Use Standard Drinks/Week Comments Yes 0 (1 standard drink = 0.6 oz pur e alcohol) socially Sex and Gender Information Value Date Recorded Sex Assigned at Not on file Legal Sex Male 11:02 AM CDT Gender Identity Not on file Sexual Orientation Not on file Last Filed Vital Signs Vital Sign Reading Time Taken Comments Blood Pressure 161/86 03/15/2024 1:18 PM CDT Pulse 74 03/15/2024 1:13 PM CDT Temperature 36.7 C (98 F) 03/15/2024 1:13 PM CDT Respiratory Rate 18 03/15/2024 1:13 PM CDT Oxygen Saturation 96% 03/15/2024 1:13 PM CDT Inhaled Oxygen Concentration - - Weight 112 kg (247 lb) 03/15/2024 1:13 PM CDT Height 182.9 cm (6') 03/15/2024 1:13 PM CDT Body Mass Index 33.5 03/15/2024 1:13 PM CDT Plan of Treatment Health Maintenance Due Date Last Done Comments Pre-Diabetes and Diabetes Screening 1969 DTAP/TDAP/TD VACCINES (1 - Tdap) 1988 HEPATITIS B VACCINES (1 of 3 - 19+ 3-dose series) 01/1989 COLORECTAL SCREENING 2014 Colorectal Cancer Screening 2014 FIT-DNA Q 3 years 2014 FIT/FOBT Q 1 year 2014 Flex Sig/CT Colonography Q 5 years 2014 ZOSTER VACCINE (1 of 2) 2019 INFLUENZA VACCINE (#1) 2024 Insurance [employer] BLUE ACCESS/TRUE BLUE PPO
== END 2024-12-25 13:34 | disposition home or self-care (01) ==
LOC: ANHLAB 13:34
PROVIDERS: PCP Family Medicine; Visit Provider Student in an Organized Health Care Education/Training Program
DX: E78.2 Mixed hyperlipidemia (principal); E11.9 Type 2 diabetes mellitus without complications; I10 Essential (primary) hypertension; E78.5 Hyperlipidemia, unspecified
CPT/HCPCS: 36415; 80053; 80061; 83036; 85025

== ENCOUNTER 2025-01-04 13:22 | Outpatient (CLI) | payer BC, SELFPAY ==
--- NOTE | ~2025-01-04 | CT_ITS ---
CT Scan of the Chest without Contrast: Clinical Indication: Lung cancer screening, nicotine dependence Technique: Contiguous sections were acquired throughout the chest without intravenous contrast. Dose reduction technique was used on this scan by utilizing automated exposure control and iterative recon struction technique. The dose-length product (DLP) was 224.08 mGy-cm. Findings: There is no evidence of any significant mediastinal, hilar or axillary lymphadenopathy. The mediastin al soft tissues appear normal. There is no evidence of pleural or pericardial effusion. The lungs are clear. No pulmonary nodules or infiltrates are noted. Images through the upper abdomen reveal no abnormalities. Impression: Lung RADS 1: Negative. 12 month follow-up screening CT advised. Reviewed, dictated and finalized at location . Impression: Lung RADS 1: Negative. 12 month follow-up screening CT advised.
== END 2025-01-04 13:23 | disposition home or self-care (01) ==
LOC: MICIMG 13:23
PROVIDERS: PCP Family Medicine; Visit Provider Student in an Organized Health Care Education/Training Program
DX: Z12.2 Encounter for screening for malignant neoplasm of respiratory organs (principal); Z87.891 Personal history of nicotine dependence
CPT/HCPCS: 71271